=== PATIENT | male | born 1995 | race African-American/Black ===

== ENCOUNTER 2020-09-04 13:21 | Inpatient (IN) ==
[2020-09-04] MEDS ORDERED: METOCLOPRAMIDE 10 MG/2 ML VIAL IV STA (14:24)
[2020-09-04] MEDS ORDERED: SODIUM CHLORIDE 0.9% 1,000 ML IV STA ×2 (14:24→15:47)
[2020-09-04] MEDS ORDERED: ONDANSETRON 4 MG/2 ML VIAL IV STA (14:24)
[2020-09-04] MEDS ORDERED: PANTOPRAZOLE 40 MG VIAL IV STA (14:24)
[2020-09-04 15:02] LABS: Basophils # 0.1 10*3/uL (0.0-0.2); Basophils % 0.5 % (0.0-0.8); Eosinophils # 0.1 10*3/uL (0.0-0.87); Eosinophils % 0.6 % (0.00-10.9); Hematocrit 50.4 VOL% (42.0-52.0); Hemoglobin 17.6 GM/DL (14.0-18.0); Immature Granulocytes % 0.5 %; Immature Granulocytes Absolute 0.05 #; Lymphocytes # 2.4 10*3/uL (1.4-4.0); Lymphocytes % 22.3 % (21.2-54.2); Mean Corpuscular HGB Conc 34.9 GM/DL (32-36); Mean Corpuscular Volume 85.3 FL (87-102); Mean Platelet Volume 12.9 FL (9.6-12.0); Monocytes % 7.6 % (1.7-12.7); Neutrophils % 68.5 % (38.7-73.9); Platelet Count 264 T/CUMM (130-400); Red Blood Count 5.91 MC/CUMM (3.8-5.5); Red Cell Distribution Width 12.1 % (9.3-17.3)
[2020-09-04 15:23] LABS: Albumin 4.9 G/DL (3.4-5.0); Bilirubin,Total 0.9 MG/DL (0.2-1.0); Calcium 10.1 MG/DL (8.5-10.1); Potassium 4.6 MMOL/L (3.5-5.1); Total Protein 9.4 G/DL (6.4-8.2)
[2020-09-04] MEDS ORDERED: INSULIN REGULAR 100 UNIT/ML IV STA (15:29)
[2020-09-04 15:51] LABS: ABG Base Excess -8.9 MMOL/L (-2.5-2.5); ABG HCO3 17.5 MMOL/L (20-26); ABG Oxygen Saturation 96.9 % (95-100); ABG PCO2 31.7 MM HG (35-48); ABG PH 7.317 (7.35-7.45); ABG PO2 95.1 MM HG (80-95); ABG TCO2 13.6 MMOL/L (23-27); Allen Test Positive
[2020-09-04] MEDS ORDERED: ONDANSETRON 4 MG/2 ML VIAL IV PRN (16:38)
[2020-09-04] MEDS ORDERED: hydrALAZINE 20 MG/1 ML VIAL IV PRN (16:38)
[2020-09-04] MEDS ORDERED: DEXTROSE 50% 25 GM/50 ML VIAL IV PRN ×2 (16:38)
[2020-09-04] MEDS ORDERED: GLUCAGON 1 MG VIAL IM PRN (16:38)
[2020-09-04] MEDS ORDERED: METOPROLOL TARTRATE 5 MG/5 ML VIAL IV ONE (16:46)
[2020-09-04] MEDS: ENOXAPARIN 40 MG/0.4 ML SYRINGE SUBCUT SCH (17:38)
[2020-09-04] MEDS: SODIUM CHLORIDE 0.9% 1,000 ML IV SCH (17:39)
[2020-09-04] MEDS: INSULIN LISPRO 100 UNIT/ML SUBCUT SCH (18:47)
[2020-09-04 21:13] LABS: Bilirubin,Urine Negative (Negative); Blood, Urine Negative (Negative); Glucose,Urine (UA) >=500 mg/dL (Negative); Ketones,Urine 80 mg/dL (Negative); Mucus,Urine Few /LPF (Occasional); Nitrite,Urine Negative (Negative); Protein,Urine 100 MG/DL; RBC,Urine 10 /HPF (0-4); Squamous Epithelial Cell,Urine Occasional /HPF (0-10); Urine Appearance CLEAR (Clear); Urine Color Yellow (Yellow); Urine Specific Gravity 1.033 (1.001-1.035); Urine Urobilinogen < 2.0 EU/DL (0.2-1.0)
[2020-09-05] MEDS: INSULIN LISPRO 100 UNIT/ML SUBCUT SCH ×5 (01:02→21:00)
[2020-09-05 05:26] LABS: Basophils # 0.1 10*3/uL (0.0-0.2); Basophils % 0.4 % (0.0-0.8); Eosinophils # 0.1 10*3/uL (0.0-0.87); Eosinophils % 0.9 % (0.00-10.9); Hematocrit 45.4 VOL% (42.0-52.0); Immature Granulocytes % 0.3 %; Immature Granulocytes Absolute 0.04 #; Lymphocytes # 3.7 10*3/uL (1.4-4.0); Lymphocytes % 29.2 % (21.2-54.2); Mean Corpuscular HGB Conc 34.1 GM/DL (32-36); Mean Corpuscular Volume 86.6 FL (87-102); Mean Platelet Volume 12.6 FL (9.6-12.0); Neutrophils % 60.2 % (38.7-73.9); Platelet Count 239 T/CUMM (130-400); Red Blood Count 5.24 MC/CUMM (3.8-5.5); Red Cell Distribution Width 12.3 % (9.3-17.3); White Blood Count 12.7 T/CUMM (4-12)
[2020-09-05 05:27] LABS: Hemoglobin 15.5 GM/DL (14.0-18.0)
[2020-09-05 05:48] LABS: Albumin 4.1 G/DL (3.4-5.0); Calcium 8.8 MG/DL (8.5-10.1); Potassium 3.7 MMOL/L (3.5-5.1); Risk Ratio 5.65; Total Protein 7.6 G/DL (6.4-8.2); VLDL Cholesterol 58.6 MG/DL
[2020-09-05] MEDS: SODIUM CHLORIDE 0.9% 1,000 ML IV SCH (06:01)
[2020-09-05] MEDS: PANTOPRAZOLE 40 MG TABLET PO SCH (09:04)
[2020-09-05] MEDS: SODIUM CHLORIDE 0.45% 1,000 ML IV SCH ×2 (12:56→21:00)
[2020-09-05] MEDS: ENOXAPARIN 40 MG/0.4 ML SYRINGE SUBCUT SCH (17:07)
[2020-09-06] MEDS: SODIUM CHLORIDE 0.45% 1,000 ML IV SCH ×2 (04:09→13:47)
[2020-09-06 05:27] LABS: Basophils # 0.1 10*3/uL (0.0-0.2); Basophils % 0.6 % (0.0-0.8); Eosinophils # 0.2 10*3/uL (0.0-0.87); Eosinophils % 1.8 % (0.00-10.9); Hematocrit 42.8 VOL% (42.0-52.0); Hemoglobin 14.5 GM/DL (14.0-18.0); Immature Granulocytes % 0.5 %; Immature Granulocytes Absolute 0.05 #; Lymphocytes # 3.9 10*3/uL (1.4-4.0); Lymphocytes % 38.2 % (21.2-54.2); Mean Corpuscular HGB Conc 33.9 GM/DL (32-36); Mean Corpuscular Volume 88.1 FL (87-102); Mean Platelet Volume 12.6 FL (9.6-12.0); Monocytes % 7.7 % (1.7-12.7); Neutrophils % 51.2 % (38.7-73.9); Platelet Count 207 T/CUMM (130-400); Red Blood Count 4.86 MC/CUMM (3.8-5.5); Red Cell Distribution Width 12.3 % (9.3-17.3); White Blood Count 10.3 T/CUMM (4-12)
[2020-09-06 05:47] LABS: Albumin 3.6 G/DL (3.4-5.0); Bilirubin,Total 0.6 MG/DL (0.2-1.0); Calcium 8.3 MG/DL (8.5-10.1); Osmolality,Calculated 281.5 MOS/KG (273-304); Potassium 3.7 MMOL/L (3.5-5.1)
[2020-09-06] MEDS ORDERED: amLODIPine 2.5 MG TABLET PO SCH (09:00)
[2020-09-06] MEDS ORDERED: SODIUM BICARBONATE 650 MG TABLET PO SCH (09:00)
[2020-09-06] MEDS: PANTOPRAZOLE 40 MG TABLET PO SCH (09:09)
[2020-09-06] MEDS: INSULIN LISPRO 100 UNIT/ML SUBCUT SCH (09:10)
[2020-09-06 10:25] LABS: ABG Base Excess -12.5 MMOL/L (-2.5-2.5); ABG Oxygen Saturation 97.8 % (95-100); ABG PH 7.296 (7.35-7.45); ABG PO2 97.5 MM HG (80-95)
[2020-09-06] MEDS ORDERED: INSULIN REGULAR 100 UNIT/ML IV ONE (10:38)
[2020-09-06] MEDS ORDERED: SODIUM PHOSPHATE INJ 30 MMOL in SODIUM CHLORIDE 0.9% 250 ML IV PRN (10:38)
[2020-09-06] MEDS ORDERED: SODIUM BICARB INJ 100 MEQ in STERILE WATER INJ 400 ML IV PRN (10:38)
[2020-09-06] MEDS ORDERED: DEXTROSE 50% 25 GM/50 ML VIAL IV PRN ×2 (10:38)
[2020-09-06] MEDS ORDERED: SODIUM CHLORIDE 0.9% 1,000 ML IV ONE (10:38)
[2020-09-06] MEDS ORDERED: MAGNESIUM SULF RIDER 4 GM/100 ML PREMIX IV PRN (10:38)
[2020-09-06 11:17] LABS: Basophils # 0.1 10*3/uL (0.0-0.2); Basophils % 0.6 % (0.0-0.8); Eosinophils # 0.1 10*3/uL (0.0-0.87); Eosinophils % 1.1 % (0.00-10.9); Hematocrit 44.6 VOL% (42.0-52.0); Hemoglobin 14.5 GM/DL (14.0-18.0); Immature Granulocytes % 0.2 %; Immature Granulocytes Absolute 0.02 #; Lymphocytes # 3.4 10*3/uL (1.4-4.0); Lymphocytes % 33.8 % (21.2-54.2); Mean Corpuscular HGB Conc 32.5 GM/DL (32-36); Mean Corpuscular Volume 88.7 FL (87-102); Mean Platelet Volume 12.5 FL (9.6-12.0); Monocytes % 7.1 % (1.7-12.7); Neutrophils % 57.2 % (38.7-73.9); Platelet Count 226 T/CUMM (130-400); Red Blood Count 5.03 MC/CUMM (3.8-5.5); Red Cell Distribution Width 12.4 % (9.3-17.3)
[2020-09-06 11:49] LABS: Calcium 8.3 MG/DL (8.5-10.1); Osmolality,Calculated 279.8 MOS/KG (273-304); Potassium 3.6 MMOL/L (3.5-5.1)
[2020-09-06] MEDS ORDERED: METOPROLOL TARTRATE 5 MG/5 ML VIAL IV ONE ×2 (13:09→15:11)
[2020-09-06] MEDS: INSULIN REGULAR DRIP 100 ML IV SCH (13:13)
[2020-09-06] MEDS: SODIUM CHLORIDE 0.9% 1,000 ML IV SCH ×3 (13:47→16:03)
[2020-09-06 14:52] LABS: Calcium 8.2 MG/DL (8.5-10.1); Osmolality,Calculated 277.7 MOS/KG (273-304); Potassium 3.6 MMOL/L (3.5-5.1)
[2020-09-06] MEDS: DEXTROSE 5% LACTATED RINGERS 1,000 ML IV SCH ×2 (15:09→22:25)
[2020-09-06] MEDS ORDERED: SODIUM CHLORIDE 0.9% 1,000 ML IV SCH (16:00)
[2020-09-06] MEDS: POTASSIUM CHLORIDE RIDER 10 MEQ/100 ML PREMIX IV PRN ×3 (17:00→21:45)
[2020-09-06] MEDS: ENOXAPARIN 40 MG/0.4 ML SYRINGE SUBCUT SCH (17:08)
[2020-09-06] MEDS ORDERED: amLODIPine 5 MG TABLET PO ONE (17:10)
[2020-09-06 19:05] LABS: Osmolality,Calculated 279.5 MOS/KG (273-304); Potassium 3.7 MMOL/L (3.5-5.1)
[2020-09-06] MEDS ORDERED: cloNIDine 0.1 MG TABLET PO ONE (20:26)
[2020-09-06] MEDS ORDERED: INSULIN GLARGINE 100 UNIT/ML SUBCUT SCH (21:00)
[2020-09-06] MEDS: LISINOPRIL/HCTZ 20-12.5 MG TABLET PO SCH (22:25)
[2020-09-06 22:38] LABS: Calcium 7.8 MG/DL (8.5-10.1); Osmolality,Calculated 276.7 MOS/KG (273-304); Potassium 3.8 MMOL/L (3.5-5.1)
[2020-09-07] MEDS: INSULIN REGULAR DRIP 100 ML IV SCH (00:50)
[2020-09-07 02:55] LABS: Basophils # 0.1 10*3/uL (0.0-0.2); Basophils % 0.6 % (0.0-0.8); Eosinophils # 0.2 10*3/uL (0.0-0.87); Eosinophils % 2.1 % (0.00-10.9); Hemoglobin 13.8 GM/DL (14.0-18.0); Immature Granulocytes % 0.5 %; Immature Granulocytes Absolute 0.04 #; Lymphocytes # 2.7 10*3/uL (1.4-4.0); Lymphocytes % 33.7 % (21.2-54.2); Mean Corpuscular HGB Conc 32.9 GM/DL (32-36); Mean Corpuscular Volume 89.4 FL (87-102); Mean Platelet Volume 12.3 FL (9.6-12.0); Monocytes % 8.4 % (1.7-12.7); Neutrophils % 54.7 % (38.7-73.9); Platelet Count 194 T/CUMM (130-400); Red Cell Distribution Width 12.3 % (9.3-17.3); White Blood Count 8.1 T/CUMM (4-12)
[2020-09-07 03:11] LABS: Calcium 8.4 MG/DL (8.5-10.1); Osmolality,Calculated 276.7 MOS/KG (273-304); Potassium 3.3 MMOL/L (3.5-5.1)
[2020-09-07] MEDS: DEXTROSE 5% LACTATED RINGERS 1,000 ML IV SCH ×2 (06:17→17:23)
[2020-09-07] MEDS: POTASSIUM CHLORIDE RIDER 10 MEQ/100 ML PREMIX IV PRN ×5 (06:22→21:26)
[2020-09-07 07:21] LABS: Calcium 8.4 MG/DL (8.5-10.1); Osmolality,Calculated 275.7 MOS/KG (273-304); Potassium 3.3 MMOL/L (3.5-5.1)
[2020-09-07] MEDS: amLODIPine 10 MG TABLET PO SCH (08:20)
[2020-09-07] MEDS: LISINOPRIL/HCTZ 20-12.5 MG TABLET PO SCH (08:20)
[2020-09-07] MEDS: CLOTRIMAZOLE/BETAMETHASONE CREAM 15 GM TUBE TOP SCH ×2 (08:20→21:12)
[2020-09-07] MEDS: PANTOPRAZOLE 40 MG TABLET PO SCH (08:20)
[2020-09-07] MEDS: MAGNESIUM SULF RIDER 2 GM/50 ML PREMIX IV PRN (08:21)
[2020-09-07] MEDS: INSULIN LISPRO 100 UNIT/ML SUBCUT SCH ×2 (10:42→16:32)
[2020-09-07 15:44] LABS: Albumin 3.5 G/DL (3.4-5.0); Bilirubin,Total 0.7 MG/DL (0.2-1.0); Calcium 8.5 MG/DL (8.5-10.1); Osmolality,Calculated 276.1 MOS/KG (273-304); Potassium 3.8 MMOL/L (3.5-5.1)
[2020-09-07] MEDS ORDERED: carvediloL 25 MG TABLET PO SCH (16:00)
[2020-09-07] MEDS: ENOXAPARIN 40 MG/0.4 ML SYRINGE SUBCUT SCH (16:32)
[2020-09-07] MEDS: INSULIN REGULAR DRIP 100 ML IV PRN (17:23)
[2020-09-07 19:59] LABS: Calcium 8.8 MG/DL (8.5-10.1); Osmolality,Calculated 279.1 MOS/KG (273-304); Potassium 3.7 MMOL/L (3.5-5.1)
[2020-09-08 02:34] LABS: Calcium 8.6 MG/DL (8.5-10.1); Osmolality,Calculated 285.4 MOS/KG (273-304); Potassium 3.3 MMOL/L (3.5-5.1)
[2020-09-08] MEDS: DEXTROSE 5% LACTATED RINGERS 1,000 ML IV SCH ×3 (03:24→09:25)
[2020-09-08] MEDS: POTASSIUM CHLORIDE RIDER 10 MEQ/100 ML PREMIX IV PRN ×3 (03:25→05:55)
[2020-09-08] MEDS: INSULIN REGULAR DRIP 100 ML IV PRN (06:40)
[2020-09-08 06:53] LABS: Osmolality,Calculated 283.7 MOS/KG (273-304); Potassium 3.8 MMOL/L (3.5-5.1)
[2020-09-08] MEDS: PANTOPRAZOLE 40 MG TABLET PO SCH (09:31)
[2020-09-08] MEDS: LISINOPRIL/HCTZ 20-12.5 MG TABLET PO SCH (09:31)
[2020-09-08] MEDS: CLOTRIMAZOLE/BETAMETHASONE CREAM 15 GM TUBE TOP SCH ×2 (09:31→20:00)
[2020-09-08] MEDS: amLODIPine 10 MG TABLET PO SCH (09:31)
[2020-09-08 13:02] LABS: Calcium 8.7 MG/DL (8.5-10.1); Osmolality,Calculated 283.7 MOS/KG (273-304); Potassium 3.5 MMOL/L (3.5-5.1)
[2020-09-08] MEDS ORDERED: INSULIN REGULAR 100 UNIT/ML SUBCUT ONE (13:14)
[2020-09-08] MEDS: METOPROLOL TARTRATE 25 MG TABLET PO SCH ×2 (13:26→18:30)
[2020-09-08] MEDS: POTASSIUM CHLORIDE 20 MEQ TABLET PO PRN ×3 (13:26→19:59)
[2020-09-08] MEDS: MAGNESIUM SULF RIDER 2 GM/50 ML PREMIX IV PRN (13:29)
[2020-09-08] MEDS: LACTATED RINGERS 1,000 ML IV SCH (13:40)
[2020-09-08] MEDS: INSULIN GLARGINE 100 UNIT/ML SUBCUT SCH ×2 (13:40→20:00)
[2020-09-08] MEDS: ENOXAPARIN 40 MG/0.4 ML SYRINGE SUBCUT SCH (17:32)
[2020-09-08 17:59] LABS: Calcium 8.9 MG/DL (8.5-10.1)
[2020-09-08] MEDS: INSULIN REGULAR 100 UNIT/ML SUBCUT SCH (18:30)
[2020-09-08 19:38] LABS: Osmolality,Calculated 283.7 MOS/KG (273-304); Potassium 3.7 MMOL/L (3.5-5.1)
[2020-09-09] MEDS: INSULIN REGULAR 100 UNIT/ML SUBCUT SCH ×2 (00:22→06:29)
[2020-09-09] MEDS: METOPROLOL TARTRATE 25 MG TABLET PO SCH ×2 (00:22→06:29)
[2020-09-09] MEDS: LACTATED RINGERS 1,000 ML IV SCH (03:46)
[2020-09-09 07:07] LABS: Calcium 8.3 MG/DL (8.5-10.1); Osmolality,Calculated 283.3 MOS/KG (273-304); Potassium 3.4 MMOL/L (3.5-5.1)
[2020-09-09] MEDS ORDERED: POTASSIUM CHLORIDE 20 MEQ TABLET PO ONE (08:31)
[2020-09-09 08:39] VITALS: BP 151/85
[2020-09-09] MEDS ORDERED: INSULIN GLARGINE 100 UNIT/ML SUBCUT SCH (09:00)
[2020-09-09] MEDS ORDERED: lisinopriL 20 MG TABLET PO SCH (09:00)
[2020-09-09] MEDS: PANTOPRAZOLE 40 MG TABLET PO SCH (10:23)
== END 2020-09-09 15:42 | disposition home or self-care (01) | DRG 638 ==
LOC: N.ED 13:21 → N.EDINP 16:38 → SUATTDRO 16:38 → N.3E 18:03 → N.ICU 09-06 11:30 → N.4E 09-08 23:23
PROVIDERS: ADMIT Internal Medicine; ATTEND Hospitalist